=== PATIENT | female | born 1955 | race Caucasian/White ===

== ENCOUNTER 2017-07-25 23:00 | Emergency (ER) | payer MEDICARE, OTHER ==
[~2017-07-25] VITALS: Ht 165.1 cm; Wt 86.6 kg
[~2017-07-25 23:00] MED LIST: ACYC5TO15G TOP; ALBU90I INH; ALPR.25 PO; ATOR20 PO; BUPR150ER PO; BUTONI; CALCA500CH PO; CALCAVITD PO; CALGLU500 PO; CARBIDOPA/LEVO PO; CEFU250 PO; CEPH500 PO; CHOL10002 PO; CYCL10 PO; Calcium/Vitamin D PO; ERGO400 PO; FISH OIL PO; FISH1000 PO; FURO20 PO; FURO40 PO; GABA300 PO; GABA600 PO; HYDACE5 PO; HYDCHL12.5 PO; IBUP800 PO; INTE3SY SC; ISODICACE PO; LISI5 PO; MODA200 PO; MOMENI; MOMENI INH; Mirapex0.25 MG PO; NAPR550 PO; OSEL75CA PO; OXYACE5T PO; OXYC5 PO; PHENA200 PO; POTA10T PO; POTCHL10ER PO; POTCHL20ER PO; PRAM.5 PO; PRAV20 PO; PRAV40 PO; PRED20 PO; PROACE100 PO; PROM25 PO; ROPI1 PO; RXHYDACE PO; RXNAPNA550 PO; TRAM50 PO; TRIA80TC TOP; XARELTO10 MG PO; XERESE 5%-1% CRE5 GM TP
[2017-07-25] MEDS ORDERED: LOSA25 PO (23:31)
[2017-07-25 23:44] LABS: Alanine Aminotransfer (ALT/SGP 28 U/L (12-78); Albumin, Blood 3.4 g/dL (3.4-5.0); Albumin/Globulin Ratio 0.9 (0.8-1.8); Alk Phos 113 U/L (50-136); Anion Gap 9 mmol/L (6-16); Aspartate Aminotrans (AST/SGOT 25 U/L (12-37); Bilirubin, Total 0.4 mg/dL (0.1-1.0); Blood Urea Nitrogen 16 mg/dL (8-24); Bun/Creatinine Ratio 21.4 (12.0-20.0); CO2, Blood 26 mmol/L (21-32); Calcium, Blood 9.5 mg/dL (8.5-10.1); Chloride, Blood 104 mmol/L (98-108); Creatinine, Blood 0.75 mg/dL (0.40-1.00); Globulin, Blood 3.6 g/dL (2.2-4.0); Glomerular Filtration Rate >60 (60-); Glucose, Blood 99 mg/dL (70-99); Sodium, Blood 139 mmol/L (136-145)
[2017-07-26 00:05] LABS: BASOPHILS ABSOLUTE AUTO 0.02 K/mm3 (0.00-0.23); BASOPHILS PERCENT AUTO 0 % (0-2); EOSINOPHILS ABSOLUTE AUTO 0.08 K/mm3 (0.00-0.68); EOSINOPHILS PERCENT AUTO 1 % (0-6); Hematocrit 40.4 % (33.0-51.0); Hemoglobin 13.8 g/dL (11.5-16.0); IMMATURE GRAN ABSOLUTE AUTO 0.02 K/mm3 (0.00-0.10); IMMATURE GRAN PERCENT AUTO 0 % (0-1); LYMPHOCYTES ABSOLUTE AUTO 3.04 K/mm3 (0.84-5.20); LYMPHOCYTES PERCENT AUTO 35 % (21-46); MONOCYTES ABSOLUTE AUTO 1.07 K/mm3 (0.16-1.47); MONOCYTES PERCENT AUTO 12 % (4-13); Mean Corpuscular HGB 31.2 pg (26.0-34.0); Mean Corpuscular HGB Conc 34.2 g/dL (31.5-36.5); Mean Corpuscular Volume 91 fL (80-100); Mean Platelet Volume 10.4 fL (9.1-12.4); NEUTROPHILS ABSOLUTE AUTO 4.56 K/mm3 (1.96-9.15); NEUTROPHILS PERCENT AUTO 52 % (41-73); Platelet Count 256 K/mm3 (150-400); RDW Coefficient Variation 12.7 % (11.7-14.2); Red Blood Cell Count 4.42 M/mm3 (3.80-5.20); White Blood Cell Count 8.79 K/mm3 (4.00-11.30)
[2017-07-26 00:42] LABS: Source, Urine Catheter
[2017-07-26 00:49] LABS: Bilirubin, Urine Neg (Neg); Blood, Urine 5+ (Neg); Glucose Qualitative, Urine Neg (Neg); Ketones, Urine Neg (Neg); Leukocyte Esterase, Urine 3+ (Neg); Nitrite, Urine Pos (Neg); Protein, Urine 3+ (Neg); Specific Gravity, Urine 1.025 (1.003-1.022); Urobilinogen, Urine NORM (Normal)
[2017-07-26 01:13] LABS: Appearance, Urine Turbid (Clear); Color, Urine Amber (P-Yellow)
[2017-07-26 01:15] LABS: Bacteria Many /hpf; Red Blood Cells, Urine TNTC /hpf (0-2); Squamous Epithelial Cells Rare /hpf (Few); White Blood Cells, Urine TNTC /hpf (0-5)
[2017-07-26] MEDS ORDERED: Pyridium200 MG PO (01:18)
[2017-07-26] MEDS ORDERED: Cefpodoxime Pr100 MG PO (01:18)
[2018-06-26] MEDS ORDERED: FOLI1 (14:20)
== END 2017-07-26 02:45 | disposition home or self-care (01) ==
LOC: ER 23:00
PROVIDERS: Physician Assistant
DX: K80.20 Calculus of gallbladder without cholecystitis without obstruction (principal); N39.0 Urinary tract infection, site not specified; E78.00 Pure hypercholesterolemia, unspecified; F17.200 Nicotine dependence, unspecified, uncomplicated; Z88.0 Allergy status to penicillin; Z88.8 Allergy status to other drugs, medicaments and biological substances; Z88.2 Allergy status to sulfonamides; Z88.5 Allergy status to narcotic agent; Z88.1 Allergy status to other antibiotic agents; Z79.899 Other long term (current) drug therapy
CPT/HCPCS: 36415; 51798; 74176; 80053; 81001; 83690; 85025; 87077; 87086; 87186; 96361; 96365; 96375; 99284; J0696; J1170; J1885; J2405; J7030

== ENCOUNTER 2018-07-11 07:38 | Emergency (ER) | payer MEDICARE, OTHER ==
[~2018-07-11] VITALS: Ht 165.1 cm; Wt 80.7 kg
[~2018-07-11 07:38] MED LIST changes: +Cefpodoxime Pr100 MG PO; +FOLI1; +LOSA25 PO; +Pyridium200 MG PO
== END 2018-07-11 08:03 | disposition home or self-care (01) ==
LOC: ER 07:38
DX: S61.012D Laceration without foreign body of left thumb without damage to nail, subsequent encounter (principal); E78.00 Pure hypercholesterolemia, unspecified; F17.290 Nicotine dependence, other tobacco product, uncomplicated; Z88.1 Allergy status to other antibiotic agents; Z88.0 Allergy status to penicillin; Z88.2 Allergy status to sulfonamides; Z88.5 Allergy status to narcotic agent; Z88.8 Allergy status to other drugs, medicaments and biological substances; Z79.899 Other long term (current) drug therapy; W26.0XXD Contact with knife, subsequent encounter

== ENCOUNTER 2018-10-16 11:58 | Emergency (ER) | payer OTHER, MEDICARE ==
[~2018-10-16] VITALS: Ht 165.1 cm; Wt 76.2 kg
== END 2018-10-16 13:59 | disposition home or self-care (01) ==
LOC: ER 11:58
DX: L03.011 Cellulitis of right finger (principal); Z88.0 Allergy status to penicillin; Z88.2 Allergy status to sulfonamides; Z88.8 Allergy status to other drugs, medicaments and biological substances; Z88.5 Allergy status to narcotic agent; Z88.1 Allergy status to other antibiotic agents; Z79.899 Other long term (current) drug therapy; E78.00 Pure hypercholesterolemia, unspecified; F17.290 Nicotine dependence, other tobacco product, uncomplicated
CPT/HCPCS: 26011; 99283-25

== ENCOUNTER 2018-10-20 11:38 | Emergency (ER) | payer OTHER, MEDICARE ==
[~2018-10-20] VITALS: Ht 165.1 cm; Wt 75.8 kg
[~2018-10-20 11:38] MED LIST changes: -FOLI1; +FOLI1 PO
[2018-10-20] MEDS ORDERED: Vibramycin100 MG PO (14:02)
[2018-10-20] MEDS ORDERED: CEPH500 PO (14:02)
[2018-10-20] MEDS ORDERED: FLUC150A PO (14:02)
[2018-10-22] MEDS ORDERED: CALCIUM PO (13:55)
[2018-10-22] MEDS ORDERED: PRIM250 PO (13:56)
[2018-10-22] MEDS ORDERED: Buspirone HCl7.5 MG PO (13:56)
== END 2018-10-20 14:45 | disposition home or self-care (01) ==
LOC: ER 11:38
DX: S62.636A Displaced fracture of distal phalanx of right little finger, initial encounter for closed fracture (principal); L08.9 Local infection of the skin and subcutaneous tissue, unspecified; E78.00 Pure hypercholesterolemia, unspecified; F17.200 Nicotine dependence, unspecified, uncomplicated; Z88.0 Allergy status to penicillin; Z88.2 Allergy status to sulfonamides; Z88.5 Allergy status to narcotic agent; Z88.6 Allergy status to analgesic agent; Z88.1 Allergy status to other antibiotic agents; Z79.899 Other long term (current) drug therapy; Z86.19 Personal history of other infectious and parasitic diseases; W23.0XXA Caught, crushed, jammed, or pinched between moving objects, initial encounter
CPT/HCPCS: 73140; 96365; 96367; 96375; 99283-25; J0690; J2405

== ENCOUNTER 2018-10-23 10:50 | Day surgery (SDC) | payer MEDICARE, OTHER ==
[~2018-10-23] VITALS: Ht 165.1 cm; Wt 74.1 kg
[~2018-10-23 10:50] MED LIST changes: +Buspirone HCl7.5 MG PO; +CALCIUM PO; +FLUC150A PO; +PRIM250 PO; +Vibramycin100 MG PO
--- NOTE | 2018-10-23 11:21 | NUR ---
History, Chart, Medications and Allergies reviewed before start of procedure. Patient States Post-Procedure ride home has been arranged.
--- NOTE | 2018-10-23 13:06 | NUR ---
Discharge instructions reviewed with patient. Patient verbalizes understanding. Copy given to patient to take home. PATIENT AND FREIND DENY CONCERNS RELATED TO DISCHARGE. PT REPORTS UNDERSTANDING THAT WILL CALL DR. WHITING IF ADDITIONAL PAIN MEDICATIONS ARE NEEDED OTHER THAN OVER THE COUNTER MEDS. Discharged via wheelchair to private car for ride home.
--- NOTE | 2018-10-23 13:12 | NUR ---
PT DRESSED, RIDE HERE. Discharged via wheelchair to private car for ride home.
== END 2018-10-23 23:21 | disposition home or self-care (01) ==
LOC: ORSCMMR 10:50
PROVIDERS: Orthopaedic Surgery
PROC: 0HQQXZZ Repair Finger Nail, External Approach (ICD-10-PCS; principal; 2018-10-23 11:00)
PROC: 0PBT0ZZ Excision of Right Finger Phalanx, Open Approach (ICD-10-PCS; principal; 2018-10-23 11:00)
DX: S62.636B Displaced fracture of distal phalanx of right little finger, initial encounter for open fracture (principal); S67.196A Crushing injury of right little finger, initial encounter; V48.4XXA Person boarding or alighting a car injured in noncollision transport accident, initial encounter; I10 Essential (primary) hypertension; J45.909 Unspecified asthma, uncomplicated; G47.33 Obstructive sleep apnea (adult) (pediatric); E78.00 Pure hypercholesterolemia, unspecified; B19.20 Unspecified viral hepatitis C without hepatic coma; Z79.899 Other long term (current) drug therapy
CPT/HCPCS: J2250; J2704; J3010; J7120

== ENCOUNTER 2019-01-29 00:14 | Emergency (ER) | payer MEDICARE, OTHER ==
[~2019-01-29] VITALS: Ht 165.1 cm; Wt 72.6 kg
== END 2019-01-29 02:00 | disposition home or self-care (01) ==
LOC: ER 00:14
DX: S63.501A Unspecified sprain of right wrist, initial encounter (principal); S60.511A Abrasion of right hand, initial encounter; W19.XXXA Unspecified fall, initial encounter; Z88.0 Allergy status to penicillin; Z88.8 Allergy status to other drugs, medicaments and biological substances; Z88.2 Allergy status to sulfonamides; Z88.1 Allergy status to other antibiotic agents; Z88.5 Allergy status to narcotic agent; Z79.899 Other long term (current) drug therapy; Z87.891 Personal history of nicotine dependence
CPT/HCPCS: 73110; 99283-25

== ENCOUNTER 2019-08-02 00:45 | Emergency (ER) | payer MEDICARE, OTHER ==
[~2019-08-02] VITALS: Ht 165.1 cm; Wt 66.2 kg
[2019-08-02] MEDS ORDERED: ONDA4ODT MM (02:36)
== END 2019-08-02 02:48 | disposition home or self-care (01) ==
LOC: ER 00:45
DX: J11.1 Influenza due to unidentified influenza virus with other respiratory manifestations (principal); E78.00 Pure hypercholesterolemia, unspecified; N18.3 Chronic kidney disease, stage 3 (moderate); Z88.8 Allergy status to other drugs, medicaments and biological substances; Z88.0 Allergy status to penicillin; Z88.2 Allergy status to sulfonamides; Z88.1 Allergy status to other antibiotic agents; Z88.5 Allergy status to narcotic agent; Z79.899 Other long term (current) drug therapy; F17.290 Nicotine dependence, other tobacco product, uncomplicated
CPT/HCPCS: 99283

== ENCOUNTER 2020-04-04 16:28 | Emergency (ER) | payer MEDICARE, OTHER ==
[~2020-04-04] VITALS: Ht 165.1 cm; Wt 60.8 kg
[~2020-04-04 16:28] MED LIST changes: +LEVO750 PO; +ONDA4ODT MM
== END 2020-04-04 18:03 | disposition home or self-care (01) ==
LOC: ER 16:28
DX: S50.11XA Contusion of right forearm, initial encounter (principal); Z88.0 Allergy status to penicillin; Z88.2 Allergy status to sulfonamides; Z88.5 Allergy status to narcotic agent; Z88.1 Allergy status to other antibiotic agents; Z88.8 Allergy status to other drugs, medicaments and biological substances; Z79.899 Other long term (current) drug therapy; F41.9 Anxiety disorder, unspecified; E78.5 Hyperlipidemia, unspecified; Z86.19 Personal history of other infectious and parasitic diseases; F17.210 Nicotine dependence, cigarettes, uncomplicated; W11.XXXA Fall on and from ladder, initial encounter
CPT/HCPCS: 73090; 99283-25

== ENCOUNTER 2020-04-21 00:02 | Day surgery (SDC) | payer MEDICARE, OTHER | END 2020-04-21 09:57 | disposition home or self-care (01) | LOC: ATC 00:02 | DX: E27.40 Unspecified adrenocortical insufficiency (principal); I12.9 Hypertensive chronic kidney disease with stage 1 through stage 4 chronic kidney disease, or unspecified chronic kidney disease; Z88.5 Allergy status to narcotic agent; Z88.0 Allergy status to penicillin; Z88.1 Allergy status to other antibiotic agents; Z88.8 Allergy status to other drugs, medicaments and biological substances; N18.2 Chronic kidney disease, stage 2 (mild); D63.1 Anemia in chronic kidney disease; N25.81 Secondary hyperparathyroidism of renal origin; E87.1 Hypo-osmolality and hyponatremia; E87.6 Hypokalemia; N28.1 Cyst of kidney, acquired; E55.9 Vitamin D deficiency, unspecified; F17.200 Nicotine dependence, unspecified, uncomplicated; Z79.899 Other long term (current) drug therapy | CPT/HCPCS: 80400; 82533; 96372; J0834 ==

== ENCOUNTER 2020-05-07 18:43 | Emergency (ER) | payer MEDICARE, OTHER ==
[~2020-05-07] VITALS: Ht 165.1 cm; Wt 63.0 kg
[2020-05-07 19:21] LABS: BASOPHILS ABSOLUTE AUTO 0.03 K/mm3 (0.00-0.23); BASOPHILS PERCENT AUTO 1 % (0-2); EOSINOPHILS ABSOLUTE AUTO 0.08 K/mm3 (0.00-0.68); EOSINOPHILS PERCENT AUTO 1 % (0-6); Hematocrit 33.7 % (33.0-51.0); Hemoglobin 11.6 g/dL (11.5-16.0); IMMATURE GRAN ABSOLUTE AUTO 0.01 K/mm3 (0.00-0.10); IMMATURE GRAN PERCENT AUTO 0 % (0-1); LYMPHOCYTES ABSOLUTE AUTO 2.06 K/mm3 (0.84-5.20); LYMPHOCYTES PERCENT AUTO 31 % (21-46); MONOCYTES ABSOLUTE AUTO 0.65 K/mm3 (0.16-1.47); MONOCYTES PERCENT AUTO 10 % (4-13); Mean Corpuscular HGB 31.1 pg (26.0-34.0); Mean Corpuscular HGB Conc 34.4 g/dL (31.5-36.5); Mean Corpuscular Volume 90 fL (80-100); NEUTROPHILS ABSOLUTE AUTO 3.75 K/mm3 (1.96-9.15); NEUTROPHILS PERCENT AUTO 57 % (41-73); Platelet Count 254 K/mm3 (150-400); RDW Coefficient Variation 11.9 % (11.7-14.2); RDW Standard Deviation 39.3 fL (35.1-46.3); Red Blood Cell Count 3.73 M/mm3 (3.80-5.20); White Blood Cell Count 6.58 K/mm3 (4.00-11.30)
[2020-05-07 19:43] LABS: Alanine Aminotransfer (ALT/SGP 25 U/L (12-78); Albumin, Blood 3.7 g/dL (3.4-5.0); Albumin/Globulin Ratio 1.2 (0.8-1.8); Alk Phos 124 U/L (50-136); Anion Gap 6 mmol/L (6-16); Aspartate Aminotrans (AST/SGOT 21 U/L (12-37); Bilirubin, Total 0.4 mg/dL (0.1-1.0); Blood Urea Nitrogen 16 mg/dL (8-24); Bun/Creatinine Ratio 22.5 (12.0-20.0); CO2, Blood 29 mmol/L (21-32); Calcium, Blood 9.2 mg/dL (8.5-10.1); Chloride, Blood 106 mmol/L (98-108); Creatinine, Blood 0.71 mg/dL (0.40-1.00); Glomerular Filtration Rate >60 (60-); Glucose, Blood 95 mg/dL (70-99); Potassium, Blood 3.4 mmol/L (3.5-5.5); Sodium, Blood 141 mmol/L (136-145); Total Protein, Blood 6.7 g/dL (6.4-8.2)
== END 2020-05-07 23:15 | disposition left against medical advice (07) ==
LOC: ER 18:43
PROVIDERS: Physician Assistant
DX: R10.9 Unspecified abdominal pain (principal); Z79.899 Other long term (current) drug therapy; Z53.21 Procedure and treatment not carried out due to patient leaving prior to being seen by health care provider
CPT/HCPCS: 36415; 80053; 83690; 85025; 99283

== ENCOUNTER 2020-05-09 12:25 | Emergency (ER) | payer MEDICARE, OTHER ==
[~2020-05-09] VITALS: Ht 165.1 cm; Wt 63.0 kg
[2020-05-09 13:14] LABS: Source, Urine Clean Catch
[2020-05-09 13:20] LABS: Appearance, Urine Cloudy (Clear); Blood, Urine 5+ (Neg); Color, Urine Yellow (P-Yellow); Glucose Qualitative, Urine Neg (Neg); Ketones, Urine 1+ (Neg); Leukocyte Esterase, Urine 3+ (Neg); Nitrite, Urine Neg (Neg); Protein, Urine 3+ (Neg); Specific Gravity, Urine 1.025 (1.003-1.022); Urobilinogen, Urine 2+ (Normal)
[2020-05-09 13:26] LABS: BASOPHILS ABSOLUTE AUTO 0.04 K/mm3 (0.00-0.23); BASOPHILS PERCENT AUTO 1 % (0-2); EOSINOPHILS ABSOLUTE AUTO 0.03 K/mm3 (0.00-0.68); EOSINOPHILS PERCENT AUTO 1 % (0-6); Hematocrit 38.4 % (33.0-51.0); Hemoglobin 12.9 g/dL (11.5-16.0); IMMATURE GRAN ABSOLUTE AUTO 0.01 K/mm3 (0.00-0.10); IMMATURE GRAN PERCENT AUTO 0 % (0-1); LYMPHOCYTES ABSOLUTE AUTO 1.82 K/mm3 (0.84-5.20); LYMPHOCYTES PERCENT AUTO 28 % (21-46); MONOCYTES ABSOLUTE AUTO 0.61 K/mm3 (0.16-1.47); MONOCYTES PERCENT AUTO 10 % (4-13); Mean Corpuscular HGB 30.7 pg (26.0-34.0); Mean Corpuscular HGB Conc 33.6 g/dL (31.5-36.5); Mean Corpuscular Volume 91 fL (80-100); Mean Platelet Volume 9.8 fL (9.1-12.4); NEUTROPHILS ABSOLUTE AUTO 3.94 K/mm3 (1.96-9.15); NEUTROPHILS PERCENT AUTO 61 % (41-73); Platelet Count 275 K/mm3 (150-400); RDW Coefficient Variation 11.9 % (11.7-14.2); RDW Standard Deviation 40.1 fL (35.1-46.3); White Blood Cell Count 6.45 K/mm3 (4.00-11.30)
[2020-05-09 13:40] LABS: Bilirubin, Urine 1+ (Neg)
[2020-05-09 13:42] LABS: White Blood Cells, Urine 50-100 /hpf (0-5)
[2020-05-09 13:43] LABS: Bacteria Mod /hpf; Calcium Oxalate Crystals Mod /hpf; Squamous Epithelial Cells Rare /hpf (Few)
[2020-05-09 13:45] LABS: Renal Epithelial Few /hpf (0-Rare)
[2020-05-09 14:08] LABS: Alanine Aminotransfer (ALT/SGP 23 U/L (12-78); Albumin, Blood 3.8 g/dL (3.4-5.0); Albumin/Globulin Ratio 1.2 (0.8-1.8); Alk Phos 125 U/L (50-136); Anion Gap 4 mmol/L (6-16); Aspartate Aminotrans (AST/SGOT 22 U/L (12-37); Bilirubin, Total 0.3 mg/dL (0.1-1.0); Blood Urea Nitrogen 13 mg/dL (8-24); Bun/Creatinine Ratio 18.5 (12.0-20.0); CO2, Blood 29 mmol/L (21-32); Calcium, Blood 9.2 mg/dL (8.5-10.1); Chloride, Blood 106 mmol/L (98-108); Globulin, Blood 3.1 g/dL (2.2-4.0); Glomerular Filtration Rate >60 (60-); Glucose, Blood 95 mg/dL (70-99); Potassium, Blood 3.9 mmol/L (3.5-5.5); Sodium, Blood 139 mmol/L (136-145); Total Protein, Blood 6.9 g/dL (6.4-8.2)
[2020-05-09] MEDS ORDERED: Levaquin750 MG PO (17:34)
== END 2020-05-09 17:38 | disposition home or self-care (01) ==
LOC: ER 12:25
PROVIDERS: Physician Assistant
DX: N12 Tubulo-interstitial nephritis, not specified as acute or chronic (principal); C64.1 Malignant neoplasm of right kidney, except renal pelvis; E78.5 Hyperlipidemia, unspecified; F41.9 Anxiety disorder, unspecified; F17.210 Nicotine dependence, cigarettes, uncomplicated; Z79.899 Other long term (current) drug therapy
CPT/HCPCS: 36415; 51798; 74177; 80053; 81001; 85025; 87077; 87086; 87186; 96374; 96375; 99284-25; J1170; J2405; Q9967

== ENCOUNTER 2020-12-23 04:13 | Emergency (ER) | payer MEDICARE, OTHER ==
[~2020-12-23] VITALS: Ht 165.1 cm; Wt 52.2 kg
[~2020-12-23 04:13] MED LIST changes: +Levaquin750 MG PO
[2020-12-23] MEDS ORDERED: Roxicodone5 MG PO (05:30)
[2021-01-01] MEDS ORDERED: TOPI50 PO (14:12)
== END 2020-12-23 05:53 | disposition home or self-care (01) ==
LOC: ER 04:13
DX: S52.022A Displaced fracture of olecranon process without intraarticular extension of left ulna, initial encounter for closed fracture (principal); Z88.0 Allergy status to penicillin; Z88.2 Allergy status to sulfonamides; Z88.5 Allergy status to narcotic agent; Z88.1 Allergy status to other antibiotic agents; V19.9XXA Pedal cyclist (driver) (passenger) injured in unspecified traffic accident, initial encounter
CPT/HCPCS: 29105; 73080; 73110; 99283-25; A9270

== ENCOUNTER 2021-01-14 14:46 | Emergency (ER) | payer MEDICARE, OTHER ==
[~2021-01-14] VITALS: Ht 162.6 cm; Wt 54.4 kg
[~2021-01-14 14:46] MED LIST changes: +Roxicodone5 MG PO; +TOPI50 PO
[2021-01-14 15:31] LABS: BASOPHILS ABSOLUTE AUTO 0.04 K/mm3 (0.00-0.23); BASOPHILS PERCENT AUTO 1 % (0-2); EOSINOPHILS ABSOLUTE AUTO 0.04 K/mm3 (0.00-0.68); EOSINOPHILS PERCENT AUTO 1 % (0-6); Hematocrit 34.8 % (33.0-51.0); Hemoglobin 11.6 g/dL (11.5-16.0); IMMATURE GRAN ABSOLUTE AUTO 0.07 K/mm3 (0.00-0.10); IMMATURE GRAN PERCENT AUTO 1 % (0-1); LYMPHOCYTES ABSOLUTE AUTO 1.33 K/mm3 (0.84-5.20); LYMPHOCYTES PERCENT AUTO 18 % (21-46); MONOCYTES ABSOLUTE AUTO 0.68 K/mm3 (0.16-1.47); MONOCYTES PERCENT AUTO 9 % (4-13); Mean Corpuscular HGB 30.3 pg (26.0-34.0); Mean Corpuscular HGB Conc 33.3 g/dL (31.5-36.5); Mean Corpuscular Volume 91 fL (80-100); Mean Platelet Volume 9.8 fL (9.1-12.4); NEUTROPHILS ABSOLUTE AUTO 5.36 K/mm3 (1.96-9.15); NEUTROPHILS PERCENT AUTO 71 % (41-73); Platelet Count 282 K/mm3 (150-400); RDW Coefficient Variation 11.9 % (11.7-14.2); RDW Standard Deviation 39.8 fL (35.1-46.3); Red Blood Cell Count 3.83 M/mm3 (3.80-5.20); White Blood Cell Count 7.52 K/mm3 (4.00-11.30)
[2021-01-14 15:34] LABS: Alanine Aminotransfer (ALT/SGP 35 U/L (12-78); Albumin, Blood 3.6 g/dL (3.4-5.0); Albumin/Globulin Ratio 1.2 (0.8-1.8); Alk Phos 136 U/L (50-136); Anion Gap 8 mmol/L (6-16); Aspartate Aminotrans (AST/SGOT 44 U/L (12-37); Bilirubin, Total 0.3 mg/dL (0.1-1.0); Blood Urea Nitrogen 15 mg/dL (8-24); Bun/Creatinine Ratio 19.5 (12.0-20.0); CO2, Blood 26 mmol/L (21-32); Calcium, Blood 8.9 mg/dL (8.5-10.1); Chloride, Blood 103 mmol/L (98-108); Creatinine, Blood 0.77 mg/dL (0.40-1.00); Globulin, Blood 3.1 g/dL (2.2-4.0); Glomerular Filtration Rate >60 (60-); Glucose, Blood 100 mg/dL (70-99); Potassium, Blood 3.8 mmol/L (3.5-5.5); Sodium, Blood 137 mmol/L (136-145); Total Protein, Blood 6.7 g/dL (6.4-8.2)
[2021-01-14] MEDS ORDERED: Roxicodone5 MG PO (16:02)
== END 2021-01-14 16:55 | disposition home or self-care (01) ==
LOC: ER 14:46
PROVIDERS: Emergency Medicine
DX: S39.012A Strain of muscle, fascia and tendon of lower back, initial encounter (principal); F17.200 Nicotine dependence, unspecified, uncomplicated; W14.XXXA Fall from tree, initial encounter
CPT/HCPCS: 36415; 71045; 74176; 80053; 85025; 96374; 96375; 96376; 99284-25; A9270; J1170; J2405; J7030; L0160

== ENCOUNTER 2021-01-17 16:50 | Emergency (ER) | payer MEDICARE, OTHER ==
[~2021-01-17] VITALS: Ht 165.1 cm; Wt 57.1 kg
== END 2021-01-17 18:35 | disposition home or self-care (01) ==
LOC: ER 16:50
DX: M54.5 Low back pain (principal); M25.552 Pain in left hip; E78.00 Pure hypercholesterolemia, unspecified; F17.200 Nicotine dependence, unspecified, uncomplicated; Z88.2 Allergy status to sulfonamides; Z88.5 Allergy status to narcotic agent; Z88.1 Allergy status to other antibiotic agents; Z88.4 Allergy status to anesthetic agent; Z79.899 Other long term (current) drug therapy; W20.8XXA Other cause of strike by thrown, projected or falling object, initial encounter
CPT/HCPCS: 72220; 99282-25

== ENCOUNTER 2021-11-15 22:17 | Observation (INO) | payer MEDICARE, OTHER ==
[~2021-11-15] VITALS: Ht 165.1 cm; Wt 67.9 kg
[~2021-11-15 22:17] MED LIST changes: +IBUP600 PO; +Keflex250 MG PO; +NEURONTIN300 MG PO; +Pyridium100 MG PO
[2021-11-15 23:41] LABS: Acetaminophen, Random <2.0 ug/mL (10.0-30.0); Anion Gap 6 mmol/L (6-16); Blood Urea Nitrogen 14 mg/dL (8-24); Bun/Creatinine Ratio 20.9 (12.0-20.0); CO2, Blood 26 mmol/L (21-32); Calcium, Blood 8.5 mg/dL (8.5-10.1); Chloride, Blood 107 mmol/L (98-108); Creatinine, Blood 0.67 mg/dL (0.40-1.00); Glomerular Filtration Rate >60 (60-); Glucose, Blood 92 mg/dL (70-99); Potassium, Blood 3.4 mmol/L (3.5-5.5); Salicylate 2.8 mg/dL (2.8-20.0); Sodium, Blood 139 mmol/L (136-145)
--- NOTE | 2021-11-16 02:00 | NUR ---
ADMIT ASSESSMENT: PT ARRIVED TO ICU 15 VIA GURNEY WITH RN AT BEDSIDE AND HEART MONITOR ATTACHED. PT STATES SHE IS TIRED, BUT VERY AWAKE AND ANSWERING QUESTIONS. SWEARS THAT SHE TOOK 100+ TABS OF HER MIRAPEX ON ACCIDENT. STATES SHE'S NOT QUIET SURE HOW SHE DID IT. MADDISON BILAT. LS CLEAR BUT DIMINISHED IN THE BASES. ON RA. STATES SHE HAS NARCOLEPSY AND SLEEP APNEA BUT CAN'T WEAR A CPAP MASK BECAUSE SHE RIPS IT OFF. HEART SOUNDS S1 AND S2 AUSCULTATED WITH MONITOR SHOWING SR WITH HR 60'S. SKIN BROWN, WARM AND DRY. PPP BILAT AND STRONG. BILAT RADIAL PULSES STRONG. 20G IV R WRIST WITH LR RUNNING AT 125CC/HR. PT GIVEN CALL LIGHT AND ADVISED NOT TO GET OUT OF BED WITHOUT ASSISTANCE.
[2021-11-16] MEDS ORDERED: CEPH250A PO (02:17)
[2021-11-16] MEDS ORDERED: PRAM.5 PO (02:23)
[2021-11-16 04:53] LABS: Alanine Aminotransfer (ALT/SGP 27 U/L (12-78); Albumin, Blood 2.9 g/dL (3.4-5.0); Albumin/Globulin Ratio 1.1 (0.8-1.8); Alk Phos 84 U/L (50-136); Anion Gap 3 mmol/L (6-16); Aspartate Aminotrans (AST/SGOT 18 U/L (12-37); Bilirubin, Total 0.3 mg/dL (0.1-1.0); Blood Urea Nitrogen 13 mg/dL (8-24); CO2, Blood 27 mmol/L (21-32); Calcium, Blood 7.8 mg/dL (8.5-10.1); Chloride, Blood 110 mmol/L (98-108); Creatinine, Blood 0.62 mg/dL (0.40-1.00); Globulin, Blood 2.6 g/dL (2.2-4.0); Glomerular Filtration Rate >60 (60-); Glucose, Blood 108 mg/dL (70-99); Potassium, Blood 3.8 mmol/L (3.5-5.5); Sodium, Blood 140 mmol/L (136-145); Total Protein, Blood 5.5 g/dL (6.4-8.2)
--- NOTE | 2021-11-16 05:15 | NUR ---
[facility] UPDATE: NOTICED I DIDN'T GET A FAX FROM [facility], SO I CALLED TO FIND OUT WHAT NEEDS TO BE CHECKED OR RECHECKED ON THIS PT. THEY SAID I NEED TO WATCH FORM ORTHOSTATIC HYPOTENSION, N/V, EXTRAPYRAMDIAL EFFECTS, LETHARGY AND HALLUCINATIONS. THEY SUGGESTED THAT OBSERVATION TIME BE 6HR AND IF PT IS OK, SHE CAN BE D/C'D HOME.
--- NOTE | 2021-11-16 07:40 | NUR ---
ASSUMED CARE: RESTING QUIETLY AT THIS TIME. NSR ON TELE. LR RUNNING PER ORDERS. NO ACUTE NEEDS AT THIS TIME.
--- NOTE | 2021-11-16 13:11 | NUR ---
PT AMBULATED IN ROOM AND WAS UNSTEADY ON FEET AND REQUIRED STAFF TO HOLD GOWN TO KEEP HER FROM FALLING. PT STATES SHE FELT LIKE EVERYTHING WAS SPINNING AND SHE FELT "WOOZY." CAME OUT NEAR NURSE'S STATION AND NEARLY COLLAPSED. HELD ONTO COUNTER AND STAFF HAD TO HOLD HER UP. CHAIR WAS USED TO PUSH HER BACK TO ROOM. EMESIS BAG AND NAUSEA MEDICATION GIVEN. PT STATES LIGHT SENSITIVE DUE TO MIGRAIN BUT MIGRAINE MEDS SHE TAKES ARE NOT AVAILABLE HERE. CALL TO DR CRISTINA WHO INSTRUCTED TO RESTART FLUIDS AND TO OFFER FOOD AND DRINK TO SEE IF WE CAN SETTLE HER STOMACH AND TO REATTEMPT AMBULATION LATER. SPECIAL OFFICER AWARE
--- NOTE | 2021-11-16 15:29 | NUR ---
DISCUSSED ATTEMPTING AMBULATION WITH PT. PT ATTEMPTED TO SIT UP AT SIDE OF THE BED AND FELL BACKWARD ON BED. PT WANTED TO TRY TO STAND AND BEGAN TO LOSE BALLANCE AGAIN. PT RETURNED TO BED WITHOUT FALLING. CALL TO DR CRISTINA WHO INSTRUCTED TO HOLD DISCHARGE FOR TODAY AND ORDERED MEDICAL STATUS WITH TELE.
--- NOTE | 2021-11-16 17:59 | NUR ---
SHIFT SUMMARY: PT HAS BEEN ATTEMPTING TO REST MOST OF SHIFT DUE TO A MIGRAINE, NAUSEA AND DIZZINESS. HAS BEEN TOO DIZZY TO STAND WITHOUT ASSISTANCE AND NEARLY FELL MULTIPLE TIMES BUT NEVER DID FALL. WAS ALWAYS ASSISTED TO CHAIR OR BED INSTEAD. ORDERED PT/OT CONSULTS FOR TOMORROW TO ASSIST WITH AMBULATION. MEDS AVAILABLE FOR VOMITING AND MIGRAINE IF PT AWAKES AND REQUIRES ANY
--- NOTE | 2021-11-16 20:27 | NUR ---
ASSUMED CARE AT 1900. REPORT GIVEN TO ERIS RODRIGUEZ FROM MEDICAL FLOOR. PT TRANSFERED TO ROOM 310 PT AOX4, TEARY EYED AND COMPLAINING OF SEVERE HEADACHE WHEN WOKEN UP FROM SLEEP. 1X ASSIST, MILD/MOD UNSTABLE GAIT DUE TO HEADACHE/MIGRAINE. COMPLAINS OF NAUSEA BUT NO VOMITTING. QTC NORMAL, HR 60'S IN SINUS RHYTHM. OVERALL, PT IS STABLE AND WANTS TO REST OVERNIGHT.
--- NOTE | 2021-11-17 04:35 | NUR ---
SUMMARY PT COMPLAINS OF HEADACHE. PT TX PER EMAR. PT REPORTS LITTLE RELIEF. PT HAS BEEN SLEEPING SINCE ARRIVING TO FLOOR. PT DENIES CX PAIN OR SOB. PT CURRENTLY SLEEPING AND BREATHING EASY. CALL LIGHT IN REACH.
[2021-11-17 05:51] LABS: Anion Gap 5 mmol/L (6-16); Blood Urea Nitrogen 14 mg/dL (8-24); Bun/Creatinine Ratio 22.9 (12.0-20.0); CO2, Blood 27 mmol/L (21-32); Calcium, Blood 8.2 mg/dL (8.5-10.1); Chloride, Blood 108 mmol/L (98-108); Creatinine, Blood 0.61 mg/dL (0.40-1.00); Glomerular Filtration Rate >60 (60-); Glucose, Blood 88 mg/dL (70-99); Potassium, Blood 3.4 mmol/L (3.5-5.5); Sodium, Blood 140 mmol/L (136-145)
--- NOTE | 2021-11-17 13:52 | NUR ---
DISCHARGE SUMMARY PATIENT IS ALERT AND ORIENTED X3-4. PATIENT HAS HAD NO ACUTE EVENTS THIS SHIFT. PATIENT COMPLAINED OF PAIN FOR HEADACHES OF WHICH IS CHRONIC. MEDICATED PER EMAR. PATIENT HAS NOT COMPLAINED OF SOB, NAUSEA, VOMITTING THIS SHIFT. VITAL SIGNS REVIEWED. PATIENT WAS WHEELED OUT BY HASMUKH BAUER TO AWAITING FAMILY.
== END 2021-11-17 14:00 | disposition home or self-care (01) ==
LOC: ER 22:17 → ICUW 22:18 → MEDS 11-16 01:30 → ICUW 11-16 01:43 → MEDS 11-16 20:39
PROVIDERS: Student in an Organized Health Care Education/Training Program; ADMIT Internal Medicine
DX: T42.8X1A Poisoning by antiparkinsonism drugs and other central muscle-tone depressants, accidental (unintentional), initial encounter (principal); I95.9 Hypotension, unspecified; R11.2 Nausea with vomiting, unspecified; E87.6 Hypokalemia; F41.8 Other specified anxiety disorders; I10 Essential (primary) hypertension; G43.909 Migraine, unspecified, not intractable, without status migrainosus; N18.30 Chronic kidney disease, stage 3 unspecified; Z85.53 Personal history of malignant neoplasm of renal pelvis; Z86.19 Personal history of other infectious and parasitic diseases; Z88.4 Allergy status to anesthetic agent; Z88.1 Allergy status to other antibiotic agents; Z88.5 Allergy status to narcotic agent; Z88.0 Allergy status to penicillin; Z88.2 Allergy status to sulfonamides; F17.200 Nicotine dependence, unspecified, uncomplicated
CPT/HCPCS: 36415; 80048; 80053; 82947; 93005; 93010; 96372; 96374; 96375; 96376; 99285-25; A9270; G0378; G0480; J1644; J2405; J3480; J7030; J7120

== ENCOUNTER 2024-02-05 02:38 | Emergency (ER) | payer MEDICARE, OTHER ==
[~2024-02-05] VITALS: Ht 165.1 cm; Wt 87.1 kg
[~2024-02-05 02:38] MED LIST changes: +CEPH250A PO
[2024-02-05 03:00] VITALS: BP 112/84
[2024-02-05] MEDS ORDERED: Pramipexole DI-HCL 1 Mg Tab PO ONE (03:10)
== END 2024-02-05 03:17 | disposition home or self-care (01) ==
LOC: ER 02:38
DX: G25.81 Restless legs syndrome (principal); E78.00 Pure hypercholesterolemia, unspecified; F17.200 Nicotine dependence, unspecified, uncomplicated; Z76.0 Encounter for issue of repeat prescription; Z79.899 Other long term (current) drug therapy; Z88.0 Allergy status to penicillin; Z88.2 Allergy status to sulfonamides; Z88.5 Allergy status to narcotic agent; Z88.1 Allergy status to other antibiotic agents; Z88.8 Allergy status to other drugs, medicaments and biological substances; E78.5 Hyperlipidemia, unspecified; E55.9 Vitamin D deficiency, unspecified; N28.1 Cyst of kidney, acquired; N18.2 Chronic kidney disease, stage 2 (mild); D63.1 Anemia in chronic kidney disease; R76.9 Abnormal immunological finding in serum, unspecified; R94.5 Abnormal results of liver function studies; R94.6 Abnormal results of thyroid function studies
CPT/HCPCS: 36415; 80061; 80069; 82306; 85025; 99281; A9270